=== PATIENT | male | born 1995 | race American Indian/Alaskan Native ===

== ENCOUNTER 2019-09-04 08:24 | Emergency (ER) | payer SELFPAY ==
[2019-09-04 08:37] VITALS: BP 135/83
[2019-09-04] MEDS ORDERED: predniSONE 20 MG TAB PO ONE (10:04)
[2019-09-04] MEDS ORDERED: ALBUTEROL 2.5 MG/3 ML NEBU IH ONE (10:04)
--- NOTE | 2019-09-04 10:04 | Emergency Department Report ---
Minor Respiratory - HPI Chief Complaint: Weakness Stated Complaint: BODYW SWEATS, WEIGHT LOSS, VOMITTING Time Seen by Provider: 09/04/19 10:03 Pain Location: Chest Severity: mild Minor Respiratory: Yes Able to Tolerate Fluids, Yes Cough, No Rhinorrhea, No Sore Throat, No Ear Pain, No Sick Contacts, No Hemoptysis, No Chest Pain, No Shortness of Breath, No Fever Other History: 23 YO AA MALE COMES TO ER WITH MOTHER. HE MOVED TO [employer] W GIRLFRIEND AND CAME BACK ILL. DID GO TO ER RECENTLY AND WAS FLU NEG. HE REPORTS COUGH, CHILLS; AND MOM WORRIED HE HAS STI. ED Review of Systems ROS: Stated complaint: BODYW SWEATS, WEIGHT LOSS, VOMITTING Other details as noted in HPI Comment: All other systems reviewed and negative ED Past Medical Hx - Past Medical History Previous Medical History?: No - Surgical History Past Surgical History?: No - Family History Family history: no significant - Social History Smoking Status: Current Every Day Smoker Substance Use Type: Marijuana - Medications Home Medications: Home Medications Medication Instructions Recorded Confirmed Last Taken Type Azithromycin [Zithromax Z-CHRISTIANO] 250 mg PO DAILY #6 tablet 09/04/19 Unknown Rx Benzonatate [Tessalon Perles] 100 mg PO Q12H PRN #20 capsule 09/04/19 Unknown R x predniSONE [Deltasone] 20 mg PO DAILY #5 tablet 09/04/19 Unknown Rx Minor Respiratory Exam - Exam General: Vital signs noted. No distress. Alert and acting appropriately. HEENT: Yes Moist Mucous Membranes, No Pharyngeal Erythema, No Pharyngeal Exudates, No Rhinorrhea, No Conjuctival Injection, No Frontal Tenderness, No Maxillary Tenderness Ear: Neither TM Bulge, Neither TM Erythema, Neither EAC Pain, Neither EAC Discharge Neck: Yes Supple, No Adenopathy Lungs: Yes Good Air Exchange, No Wheezes, No Ronchi, No Stridor, No Cough, No Labored Respirations, No Retractions, No Use of Accessory Muscles, No Other Abnormal Lung Sounds Heart: Yes Regular, No Murmur Abdomen: Yes Normal Bowel Sounds, No Tenderness, No Peritoneal Signs Skin: No Rash, No Edema Neurologic: Alert and oriented, no deficits. Musculoskeletal: Unremarkable. ED Course Vital Signs 09/04/19 08:32 Temperature 98.9 F Pulse Rate 86 Respiratory 16 Rate Blood Pressure 135/83 [Right] O2 Sat by Pulse 99 Oximetry ED Medical Decision Making - Radiology Data Radiology results: report reviewed, image reviewed - Medical Decision Making Vital Signs 09/04/19 08:32 Temperature 98.9 F Pulse Rate 86 Respiratory 16 Rate Blood Pressure 135/83 [Right] O2 Sat by Pulse 99 Oximetry UA NOTED XRAY NEG VSS NON ILL ON EXAM NO FEVER OR CHILLS Vital Signs 09/04/19 08:32 Temperature 98.9 F Pulse Rate 86 Respiratory 16 Rate Blood Pressure 135/83 [Right] O2 Sat by Pulse 99 Oximetry Lab Results 09/04/19 Range/Units 10:06 Urine Color Maria D (Yellow) Urine Turbidity Slightly-cloudy (Clear) Urine pH 5.0 (5.0-7.0) Ur Specific [place] 1.039 H (1.003-1.030) Urine Protein 30 mg/dl (Negative) mg/dL Urine Glucose (UA) Neg (Negative) mg/dL Urine Ketones Neg (Negative) mg/dL Urine Blood Neg (Negative) Urine Nitrite Neg (Negative) Urine Bilirubin Neg (Negative) Urine Urobilinogen < 2.0 (<2.0) mg/dL Ur Leukocyte Esterase Neg (Negative) Urine WBC (Auto) 2.0 (0.0-6.0) /HPF Urine RBC (Auto) 3.0 (0.0-6.0) /HPF U Epithel Cells (Auto) < 1.0 (0-13.0) /HPF Urine Mucus 3+ /HPF MEDICATED WITH DUONEB AND PREDNISONE IN ER DC HOME WITH MOTHER- AND DC POC INCLUDING FOLLOW UP - Differential Diagnosis RO PNA Critical care attestation.: If time is entered above; I have spent that time in minutes in the direct care of this critically ill patient, excluding procedure time. ED Disposition Clinical Impression: URTI (acute upper respiratory infection), Cough Disposition: DC-01 TO HOME OR SELFCARE Is pt being admited?: No Does the pt Need Aspirin: No Condition: Stable Additional Instructions: DIET TOLERATED MEDS ORDERED FOLLOW UP WITH PCP FOR FURTHER EVALUATION REFERRAL BELOW MOTRIN OR TYLENOL FOR PAIN OR FEVER STAY WELL HYDRATED Prescriptions: predniSONE [Deltasone] 20 mg PO DAILY #5 tablet Benzonatate [Tessalon Perles] 100 mg PO Q12H PRN #20 capsule PRN Reason: Cough Azithromycin [Zithromax Z-CHRISTIANO] 250 mg PO DAILY #6 tablet Referrals: PHILIP MATHEWSANGIE MD DAVIDA [Primary Care Provider] - 3-5 Days RUFUS NICHOLE MD [Staff Physician] - 3-5 Days Time of Disposition: 10:53
[2019-09-04 10:55] LABS: Bilirubin,Urine NEG (Negative); Blood,Urine NEG (Negative); Color,Urine Amber (Yellow); Mucus,Urine 3+ /HPF; Urobilinogen,Urine < 2.0 mg/dL (<2.0)
--- NOTE | 2019-09-04 11:05 | XRay Report ---
CHEST 2 VIEWS INDICATION / CLINICAL INFORMATION: COUGH. COMPARISON: 10/28/2013 FINDINGS: SUPPORT DEVICES: None. HEART / MEDIASTINUM: No significant abnormality. LUNGS / PLEURA: No significant pulmonary or pleural abnormality. No pneumothorax. ADDITIONAL FINDINGS: No significant additional findings. IMPRESSION: No significant abnormality or interval change from 10/28/2013 Signer Name: Marv Rai MD FACR Signed: 09/04/2019 11:01 AM Workstation Name: [id number]
== END 2019-09-04 11:43 | disposition home or self-care (01) ==
LOC: ED 08:24
DX: J06.9 Acute upper respiratory infection, unspecified (principal); F17.200 Nicotine dependence, unspecified, uncomplicated; F12.10 Cannabis abuse, uncomplicated; Z79.899 Other long term (current) drug therapy
CPT/HCPCS: 71046; 81001; 94640; 99284; J7512